=== PATIENT | male | born 1935 | race Caucasian/White ===

== ENCOUNTER → 2016-07-08 | Outpatient (CLI) | payer MEDICARE, BC ==
--- NOTE | 2016-07-08 16:26 | CT ---
EXAM DESCRIPTION: Soft Tissue Neck CLINICAL HISTORY: NECK PAIN COMPARISON: None. TECHNIQUE: Noncontrast transaxial CT images of the neck are obtained with coronal and sagittal reconstructed images. CT scan done according to ALARA (As Low As Reasonably Achievable). FINDINGS: The visualized skull base is unremarkable. Mild intracranial carotid artery calcifications are seen. The bilateral parotid and submandibular glands are normal and symmetric. Soft tissue of the posterior pharynx, base of the tongue, internal are symmetric and unremarkable. The epiglottis and vocal cords are unremarkable. Thyroid demonstrates heterogeneous low-attenuation nodule in the mid to lower pole left lobe measuring 17 mm transverse. Borderline mediastinal, paratracheal lymph nodes are seen measuring up to 1.4 cm short axis. Retropharyngeal space is unremarkable. Severe calcifications of the carotid bulb to internal carotid arteries is seen left greater than right. No pathologically enlarged submandibular or cervical chain lymph nodes. Severe disc space narrowing from C3 through C7 is seen with multilevel facet hypertrophic and degenerative changes contributing to mild spinal canal stenosis and multilevel foraminal encroachment. Visualized orbits and ocular globes are unremarkable. The visualized lung apices are unremarkable. IMPRESSION: No acute findings on noncontrast CT of the neck. 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 Borderline to mildly enlarged lymph nodes in the visualized mediastinum and right paratracheal region are seen. There is a heterogeneous low-attenuation 17 mm nodule of the mid to lower pole left lobe thyroid. Recommend dedicated thyroid ultrasound imaging. Recommendations for f/u of Incidental Thyroid Nodules (ITN) found on CT, MRI, NM and Extrathyroidal US based on the ACR white paper and Weinberg 3-tiered system for managing ITNs: 1. Further evaluation by thyroid US recommended for: Solitary ITN with high risk imaging features (locally invasive nodule or suspicious lymph nodes) 0 Solitary ITN of any size in pediatric patients < 18 years of age 1 Solitary ITN > 1 cm in axial plane in patients between 18 and 35 years of age 2 Solitary ITN > 1.5 cm in axial plane in patients > 35 years of age 3 Heterogeneous enlarged thyroid gland 4 ITN avid on FDG-PET or other nuclear medicine (MIBI and octreotide) scans. FNA biopsy is also recommended for PET avid nodules. 2. No f/u is necessary for ITNs not meeting the above criteria. 3. For multiple thyroid nodules, the above recommendations for solitary ITN are to be applied to the largest nodule. 4. No US or f/u recommended for ITNs without high risk features in patients with limited life expectancy or significant co-morbidities, unless clinically warranted. 5. These recommendations do not apply to patients with increased risk for thyroid cancer or patients with symptomatic thyroid disease. Electronically signed by: Leroy Pina MD 07/08/2016 4:25 PM CDT
--- NOTE | 2016-07-09 07:59 | US ---
EXAM DESCRIPTION: Carotid Duplex CLINICAL HISTORY: BRUIT COMPARISON: None Available. TECHNIQUE: Color Doppler evaluation of the extracranial carotids FINDINGS: Right carotid: There is tortuosity of the right common carotid artery. Mild heterogeneous partly calcified plaque in the right carotid bulb partly extending into the proximal right ICA. Peak systolic velocity common carotid artery = 93 cm/s Peak systolic velocity internal carotid artery = 84 cm/s Peak systolic velocity external carotid artery = 115 cm/s ICA CCA ratio 0.9 Left carotid: There is heterogeneous irregular mostly calcified plaque in the left carotid bulb and proximal left ICA. Peak systolic velocity common carotid artery = 83 cm/s Peak systolic velocity internal carotid artery = 68 cm/s Peak systolic velocity external carotid artery = 192 cm/s ICA CCA ratio 0.8 Antegrade flow is seen in both vertebral arteries Normal flow velocities and waveforms are demonstrated bilaterally. IMPRESSION: There is mild to moderate mostly calcified atherosclerotic disease of the carotid arteries left greater than right. Velocities and ratios suggest less than 39% stenosis of the internal carotid arteries. Elevated velocity in the left external carotid artery is seen suggesting 60-79% stenosis at the origin of this vessel. Electronically signed by: Leroy Pina MD 07/09/2016 7:58 AM CDT
== END | disposition home or self-care (01) ==
LOC: CT 09:12
PROVIDERS: ATTEND Family Medicine
DX: M54.2 Cervicalgia (principal); I65.23 Occlusion and stenosis of bilateral carotid arteries

== ENCOUNTER → 2016-07-16 | Outpatient (CLI) | payer MEDICARE, BC ==
--- NOTE | 2016-07-16 15:02 | US ---
EXAM DESCRIPTION: Thyroid CLINICAL HISTORY: 81 years, Male, NODULE COMPARISON: None. TECHNIQUE: Multiple real-time sonographic images were obtained of the thyroid. FINDINGS: The right lobe demonstrates no mass, cyst, or calcifications. The left lobe demonstrates two well-defined oval hypoechoic nodules. Superior lobe one measures about 10 x 10 x 6 mm. The lower pole and measures about 11 x 9 x 9 mm. The right lobe measures 3.8 cm in length by 1.5 x 1.7 cm. The left lobe measures four cm in length by 1.9 x 1.5 cm. And the isthmus measures four mm in thickness. Surrounding soft tissues are unremarkable. IMPRESSION: Two small nodules in the left lobe nonspecific recommend six-month follow-up Electronically signed by: Oscar Fernandez MD 07/16/2016 3:00 PM CDT
== END | disposition home or self-care (01) ==
LOC: US 08:26
PROVIDERS: ATTEND Family Medicine
DX: E07.9 Disorder of thyroid, unspecified (principal)

== ENCOUNTER → 2016-07-22 | Outpatient (CLI) | payer MEDICARE, BC | LOC: GMAB 14:09 | PROVIDERS: ATTEND Family Medicine | DX: M79.1 Myalgia (principal) ==

== ENCOUNTER → 2016-07-28 | Outpatient (CLI) | payer MEDICARE, BC ==
--- NOTE | 2016-07-28 16:18 | CT ---
EXAM DESCRIPTION: CTA Neck CLINICAL HISTORY: 81 years, Male, OCCLUSION AND STENOSIS OF BILATERAL CAROTID ARTERIES COMPARISON: July 23, 2016. July 16, 2016. TECHNIQUE: Rapid bolus administration of IV contrast was performed with thin-section axial scanning of the neck performed in a dynamic fashion. Reconstructed multiplanar and three dimensional MIP images created on a separate dedicated workstation are reviewed along with the source axial images and stored in the patient's medical record. NASCET criteria was used to calculate stenosis. This exam was performed according to our department minimal dose optimization program which includes automated exposure control, adjustment of mA and/or kV according to patient size and/or use of iterative reconstructed techniques. FINDINGS: Atherosclerotic disease noted within the aortic arch. Left thyroid gland nodule. The right common carotid artery and left common carotid artery are tortuous. No evidence of common carotid artery narrowing on today's study. The right common carotid artery demonstrates roughly 25% narrowing. The right cervical internal carotid artery is tortuous, but unremarkable. There is minimal intimal thickening noted along the anterior margin of the distal left common carotid artery. 31% narrowing of the carotid bulb noted. The remaining cervical left internal carotid artery is tortuous, but unremarkable. There is roughly 50% narrowing of the origin of the left vertebral artery. The origin is also tortuous. The remaining left dominant vertebral artery is unremarkable throughout cervical extent. The right vertebral artery demonstrates minimal atherosclerotic plaque at its origin, and is otherwise unremarkable. No mass or lymphadenopathy noted. Multilevel degenerative change of the cervical spine noted. Minimal paraseptal emphysema noted. IMPRESSION: Today's exam reveals roughly 25% narrowing of the right distal common carotid artery and carotid bulb and 31% narrowing of the left distal common carotid artery and carotid bulb when compared to the more distal cervical internal carotid arteries. Roughly 50% narrowing the origin of the left dominant vertebral artery. Cervical spondylosis noted and minimal paraseptal emphysema. Electronically signed by: Neil Greenfield MD 07/28/2016 4:17 PM CDT
== END | disposition home or self-care (01) ==
LOC: CT 08:02
PROVIDERS: ATTEND Family Medicine
DX: I65.23 Occlusion and stenosis of bilateral carotid arteries (principal)

== ENCOUNTER → 2016-09-02 | Outpatient (CLI) | payer MEDICARE, BC | END | disposition home or self-care (01) | LOC: GMAB 16:54 | PROVIDERS: ATTEND Family Medicine | DX: M35.3 Polymyalgia rheumatica (principal) ==

== ENCOUNTER → 2016-11-15 | Outpatient (CLI) | payer MEDICARE, BC | END | disposition home or self-care (01) | LOC: GMAB 16:38 | PROVIDERS: ATTEND Family Medicine | DX: E53.8 Deficiency of other specified B group vitamins (principal); D50.9 Iron deficiency anemia, unspecified; R07.82 Intercostal pain ==

== ENCOUNTER → 2016-12-28 | Outpatient (CLI) | payer MEDICARE, BC | LOC: GMAB 11:03 | PROVIDERS: ATTEND Family Medicine | DX: M35.3 Polymyalgia rheumatica (principal); E53.8 Deficiency of other specified B group vitamins; D50.9 Iron deficiency anemia, unspecified ==

== ENCOUNTER → 2017-02-28 | Outpatient (CLI) | payer MEDICARE, BC | END | disposition home or self-care (01) | LOC: GMAB 11:43 | PROVIDERS: ATTEND Family Medicine | DX: M35.3 Polymyalgia rheumatica (principal) ==

== ENCOUNTER → 2017-06-15 | Outpatient (CLI) | payer MEDICARE, BC | LOC: GMAB 10:48 | PROVIDERS: ATTEND Family Medicine | DX: M06.9 Rheumatoid arthritis, unspecified (principal); R53.82 Chronic fatigue, unspecified; E53.8 Deficiency of other specified B group vitamins; D50.9 Iron deficiency anemia, unspecified ==

== ENCOUNTER → 2017-07-18 | Outpatient (CLI) | payer BC | END | disposition home or self-care (01) | LOC: GMAB 16:31 | PROVIDERS: ATTEND Family Medicine | DX: M79.674 Pain in right toe(s) (principal) ==

== ENCOUNTER 2017-07-30 08:13 | Emergency (ER) | payer BC, MEDICARE ==
--- NOTE | 2017-07-30 08:32 | ED.PDOC ---
History of Present Illness - General Chief Complaint: Lower Extremity Injury Stated Complaint: left foot pain Time Seen by Provider: 07/30/17 08:28 Source: patient Exam Limitations: no limitations - History of Present Illness Initial Comments: Zheng Cabrera 82 y/o male brought by with dull constant left foot pain since yesterday .No history of injury ,fever ,but with pain on weight bearing to left foot.Has polymyalgia rheumatica. Occurred: yesterday Pain - Lower Extremity: moderate: Left Foot Method of Injury: unknown, other - denies injury Improving Factors: nothing Worsening Factors: movement Associated Symptoms: see hpi Allergies/Adverse Reactions: Allergies Erythromycin Allergy (Verified 09/30/15 22:29) Penicillins Allergy (Verified 09/30/15 22:26) myacins Allergy (Uncoded 09/30/15 22:29) Home Medications: Ambulatory Orders Ferrous Gluconate 324 mg PO DAILY 07/30/17 Folic Acid 1 mg PO DAILY 07/30/17 Gabapentin 600 mg PO TID 07/30/17 Methotrexate Sodium [Methotrexate] 8 each PO WKLY 07/30/17 Prednisone 8 mg PO DAILY 07/30/17 Tramadol HCl 50 mg PO Q6HRS PRN #30 tab 07/30/17 Review of Systems - Review of Systems Constitutional: States: no symptoms reported EENTM: States: no symptoms reported Respiratory: States: no symptoms reported Cardiology: States: no symptoms reported Musculoskeletal: States: see HPI All other Systems: Reviewed and Negative, No Change from Baseline Past Medical History (General) - Patient Medical History Hx MRSA: No Hx Other PMH: Yes - polymyalgia rheumatica Surgical History: appendectomy, other - toe - Vaccination History Hx Influenza Vaccination: Yes Hx Pneumococcal Vaccination: No - Social History Hx Tobacco Use: No Hx Alcohol Use: No Hx Physical Abuse: No Hx Emotional Abuse: No - Activities of Daily Living Patient Lives Alone: No Grooming Ability: Independent Eating (Feeding) Ability: Independent Toileting Ability: Independent Family Medical History - Family History Father Family History: Unknown Hx Family Stroke: Yes - dad,brother,sister Hx Family;Other: MOM-Alzheimers disease Physical Exam - Physical Exam General Appearance: Alert, Comfortable, No apparent distress Eyes, Ears, Nose, Throat: normal ENT inspection Neck: non-tender, full range of motion, supple Cardiovascular/Respiratory: regular rate, rhythm, no M/R/G, normal peripheral pulses Gastrointestinal/Abdominal: non-tender, no organomegaly Back: normal inspection, no CVA tenderness, no vertebral tenderness Thigh/Hip: normal inspection, no evidence of injury Leg: normal inspection, no evidence of injury Knee: normal inspection, no evidence of injury Ankle: normal inspection, no evidence of injury Foot: normal inspection - 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, no evidence of injury, bone tenderness - left foot, limited ROM - left foot, other - slight erythema, dorsalis pedis pulses intact both feet Neuro/Tendon: normal sensation, normal motor functions, normal tendon functions , responds to pain, no evidence tendon injury Mental Status: alert, oriented x 3 Skin: normal color, warm/dry Progress - Progress Progress: 07/30/17 09:22 Vital Signs - 8 hr 07/30/17 08:15 Pulse Rate [ 63 left brachial] Respiratory 20 Rate Blood Pressure 136/70 [left brachial] O2 Sat by Pulse 98 Oximetry - Results/Orders Results/Orders: Laboratory Results - last 24 hr 07/30/17 07/30/17 08:54 08:54 WBC 7.2 RBC 3.30 L Hgb 11.7 L Hct 33.9 L MCV 102.8 H MCH 35.4 H MCHC 34.7 RDW 15.7 H Plt Count 125 L MPV 9.6 Absolute Neuts (auto) 5.50 Absolute Lymphs (auto) 0.50 L Absolute Monos (auto) 1.10 H Absolute Eos (auto) 0.00 Absolute Basos (auto) 0.10 Neutrophils % 76.3 Lymphocytes % 6.8 L Monocytes % 15.8 H Eosinophils % 0.2 L Basophils % 0.9 Sodium 140 Potassium 3.9 Chloride 103 Carbon Dioxide 30 Anion Gap 10.9 L BUN 14 Creatinine 0.54 L BUN/Creatinine Ratio 25.9 H Random Glucose 134 H Serum Osmolality 281.8 Uric Acid 5.3 Calcium 9.3 - EKG/XRAY/CT XRAY: foot left-degenerative changes no fracture or dislocation as per radiologist Departure - Departure Clinical Impression: Pain of left foot Time of Disposition: 10:55 Disposition: Discharge to Home or Self Care Condition: Fair Departure Forms: ED Discharge - Pt. Copy, Patient Portal Self Enrollment Instructions: DI for Foot Pain, DI for Metatarsalgia Activity: ambulate only with walker Referrals: Lawrence Meyer MD [Primary Care Provider] - 1-2 Weeks Prescriptions: Tramadol HCl 50 mg PO Q6HRS PRN #30 tab PRN Reason: Pain Home Medications: Ambulatory Orders Ferrous Gluconate 324 mg PO DAILY 07/30/17 Folic Acid 1 mg PO DAILY 07/30/17 Gabapentin 600 mg PO TID 07/30/17 Methotrexate Sodium [Methotrexate] 8 each PO WKLY 07/30/17 Prednisone 8 mg PO DAILY 07/30/17 Tramadol HCl 50 mg PO Q6HRS PRN #30 tab 07/30/17 Additional Instructions: May use Icy Hot rub or Aspercreme apply to affected foot 3 x a day until better; follow up with primary Md 01 August 2017
[2017-07-30 08:37] VITALS: O2SAT 98
[2017-07-30] MEDS ORDERED: DEXAMETHASONE INJ 4 MG/ML VIAL IM ONE (08:37)
[2017-07-30] MEDS ORDERED: KETOROLAC TROMETHAMINE INJ 30 MG/ML VIAL IM ONE (08:37)
--- NOTE | 2017-07-30 08:54 | RAD ---
LEFT FOOT HISTORY: pain COMPARISON: None FINDINGS: Three views of foot demonstrate anatomic bony alignment. No fracture nor dislocation nor inflammatory bony erosion is identified. Pronounced degenerative changes along the first TMT joint. Other joint spaces are maintained. No soft tissue abnormality is seen. Small plantar enthesophyte in posterior calcaneus. Minimal effusion anterior to the ankle joint IMPRESSION: No bony injury identified in left foot. Pronounced degenerative change along the first TMT joint Minimal anterior ankle joint effusion Electronically signed by: Adrian Daly MD 07/30/2017 8:52 AM CDT
[2017-07-30 11:25] VITALS: BP 131/67
== END 2017-07-30 11:25 | disposition home or self-care (01) ==
LOC: ER 08:13
DX: M79.672 Pain in left foot (principal); M35.3 Polymyalgia rheumatica

== ENCOUNTER 2017-08-17 17:30 | Inpatient (IN) | payer MEDICARE ==
--- NOTE | 2017-08-17 18:24 | ED.PDOC ---
History of Present Illness - General Chief Complaint: Fever Stated Complaint: fever, weakness Time Seen by Provider: 08/17/17 18:11 Source: patient, family - Exam Limitations: no limitations - History of Present Illness Initial Comments: Zheng Cabrera 82 y/o male stated that he had sudden onset of chills,shaky, and fever about 3 hours ago initially seen [facility] and had cstrep test done was positive-faintly but was sent to ER for further evaluation.Denies cough N/V/D abdominal or chest pain symptoms no neck pains,no dysuria. Timing/Duration: 1-3 hours Severity: moderate Improving Factors: nothing Worsening Factors: nothing Associated Symptoms: other - see hpi Allergies/Adverse Reactions: Allergies Codeine Allergy (Verified 08/17/17 17:56) Erythromycin Allergy (Verified 09/30/15 22:29) Penicillins Allergy (Verified 09/30/15 22:26) Tetracaine Allergy (Verified 08/17/17 17:56) myacins Allergy (Uncoded 09/30/15 22:29) Home Medications: Ambulatory Orders Ferrous Gluconate 324 mg PO DAILY 07/30/17 Folic Acid 1 mg PO DAILY 07/30/17 Gabapentin 600 mg PO TID 07/30/17 Methotrexate Sodium [Methotrexate] 8 each PO WKLY 07/30/17 Prednisone 8 mg PO DAILY 07/30/17 Tramadol HCl 50 mg PO Q6HRS PRN #30 tab 07/30/17 Review of Systems - Review of Systems Constitutional: States: fever EENTM: States: no symptoms reported Respiratory: States: no symptoms reported Cardiology: States: no symptoms reported Gastrointestinal/Abdominal: States: no symptoms reported Genitourinary: States: no symptoms reported Musculoskeletal: States: no symptoms reported Skin: States: no symptoms reported Neurological: States: no symptoms reported All other Systems: Reviewed and Negative, No Change from Baseline Past Medical History (General) - Patient Medical History Hx Seizures: No Hx Stroke: No Hx Dementia: No Hx Asthma: No Hx Cardiac Disorders: No Hx Congestive Heart Failure: No Hx Pacemaker: No Hx Hypertension: No Hx Thyroid Disease: No Hx Diabetes: No Hx Gastroesophageal Reflux: Yes Hx Renal Disease: No Hx MRSA: No Hx Other PMH: Yes - polymyalgia rheumatica Surgical History: appendectomy, other - toe - Vaccination History Hx Influenza Vaccination: No Hx Pneumococcal Vaccination: No - Social History Hx Tobacco Use: No Hx Alcohol Use: No Hx Physical Abuse: No Hx Emotional Abuse: No Family Medical History - Family History Father Family History: Unknown Hx Family Stroke: Yes - dad,brother,sister Hx Family;Other: MOM-Alzheimers disease Physical Exam - Physical Exam General Appearance: Alert, Comfortable, No apparent distress Eye Exam: bilateral normal Ears, Nose, Throat: hearing grossly normal, normal ENT inspection, normal pharynx Neck: non-tender, full range of motion, supple Respiratory: chest non-tender, lungs clear, normal breath sounds, no respiratory distress Cardiovascular/Chest: normal peripheral pulses, regular rate, rhythm, no murmur Peripheral Pulses: radial,right: 2+, radial,left: 2+ Gastrointestinal/Abdominal: normal bowel sounds, non tender, soft, no organomegaly Back Exam: no CVA tenderness, no vertebral tenderness Extremity: no pedal edema, no calf tenderness Neurologic: alert, oriented x 3 Skin Exam: normal color, warm/dry Progress - Progress Progress: 08/17/17 19:46 08/17/17 18:08 STREP A SCREEN CULTURE Stat 08/17/17 18:28 IV Care:Saline Lock per Protoc QSHIFT 08/17/17 18:37 BLOOD CULTURE Stat Laboratory Results - last 24 hr 08/17/17 08/17/17 08/17/17 18:08 18:37 18:37 WBC 10.1 RBC 3.40 L Hgb 12.1 L Hct 34.6 L MCV 102.0 H MCH 35.5 H MCHC 34.9 RDW 15.7 H Plt Count 141 MPV 9.2 Absolute Neuts (auto) 8.90 H Absolute Lymphs (auto) 0.30 L Absolute Monos (auto) 0.80 Absolute Eos (auto) 0.00 Absolute Basos (auto) 0.10 Neutrophils % 87.9 H Lymphocytes % 2.7 L Monocytes % 8.4 Eosinophils % 0.2 L Basophils % 0.8 Sodium 135 Potassium 4.1 Chloride 100 L Carbon Dioxide 26 Anion Gap 13.1 BUN 15 Creatinine 0.62 BUN/Creatinine Ratio 24.2 H Random Glucose 102 Serum Osmolality 271.1 L Lactic Acid Calcium 9.1 Total Bilirubin 1.4 H AST 30 ALT 18 Alkaline Phosphatase 44 Serum Total Protein 6.4 Albumin 3.9 Globulin 2.5 Albumin/Globulin Ratio 1.6 Urine Color Urine Appearance Urine pH Ur Specific [place] Urine Protein Urine Glucose (UA) Urine Ketones Urine Blood Urine Nitrite Urine Bilirubin Urine Urobilinogen Ur Leukocyte Esterase Urine RBC Urine WBC Ur Epithelial Cells Urine Bacteria Group A Strep Rapid Negative 08/17/17 08/17/17 18:37 19:00 WBC RBC Hgb Hct MCV MCH MCHC RDW Plt Count MPV Absolute Neuts (auto) Absolute Lymphs (auto) Absolute Monos (auto) Absolute Eos (auto) Absolute Basos (auto) Neutrophils % Lymphocytes % Monocytes % Eosinophils % Basophils % Sodium Potassium Chloride Carbon Dioxide Anion Gap BUN Creatinine BUN/Creatinine Ratio Random Glucose Serum Osmolality Lactic Acid 1.5 Calcium Total Bilirubin AST ALT Alkaline Phosphatase Serum Total Protein Albumin Globulin Albumin/Globulin Ratio Urine Color Yellow Urine Appearance Clear Urine pH 7.5 Ur Specific [place] 1.020 Urine Protein Negative Urine Glucose (UA) Negative Urine Ketones Negative Urine Blood Negative Urine Nitrite Negative Urine Bilirubin Negative Urine Urobilinogen 0.2 Ur Leukocyte Esterase Negative Urine RBC 0-1 Urine WBC 0-1 Ur Epithelial Cells 0 Urine Bacteria 0 Group A Strep Rapid - Results/Orders Results/Orders: Vital Signs - 8 hr 08/17/17 08/17/17 17:40 19:00 Temperature 103.3 F H 104.2 F H Pulse Rate [ 82 81 pulse ox] Respiratory 20 18 Rate Blood Pressure 146/78 116/82 [Left Arm] O2 Sat by Pulse 93 L 92 L Oximetry - EKG/XRAY/CT XRAY: chest - right basilar patchy opacities/atelectasis CT Ordered: Yes - abd/p-no acute findings/radiologist Departure - Departure Clinical Impression: Fever and chills, H/O polymyalgia rheumatica, Long-term use of immunosuppressant medication Pneumonia Qualifiers: Pneumonia type: due to unspecified organism Laterality: right Lung location: lower lobe of lung Qualified Code(s): J18.1 - Lobar pneumonia, unspecified organism Time of Disposition: 20:13 Disposition: Admit Patient Condition: Fair Departure Forms: Patient Portal Self Enrollment Referrals: Lawrence Meyer MD [Primary Care Provider] - 1-2 Weeks Home Medications: Ambulatory Orders Ferrous Gluconate 324 mg PO DAILY 07/30/17 Folic Acid 1 mg PO DAILY 07/30/17 Gabapentin 600 mg PO TID 07/30/17 Methotrexate Sodium [Methotrexate] 8 each PO WKLY 07/30/17 Prednisone 8 mg PO DAILY 07/30/17 Tramadol HCl 50 mg PO Q6HRS PRN #30 tab 07/30/17 Decision To Admit - Decistion To Admit Decision to Admit Reason: Admit from ER - D/W Zachary Austin-ANP/Hospitalist Decision to Admit Date: 08/17/17 Decision to Admit Time: 20:11
[2017-08-17] MEDS ORDERED: ACETAMINOPHEN 325 MG TAB PO ONE (18:26)
[2017-08-17] MEDS ORDERED: SODIUM CHLORIDE 0.9% 500ML 500 ML IVS ONE (18:28)
--- NOTE | 2017-08-17 19:26 | RAD ---
EXAM DESCRIPTION: Chest,2 Views CLINICAL HISTORY:82 years Male, fever Comparison: None FINDINGS: Right basilar patchy opacities may represent atelectasis or pneumonia. Blunting right costophrenic angle may be due from pleural parenchymal thickening versus small pleural effusion. Cardiac and mediastinal silhouette is unremarkable. Atherosclerotic vascular calcifications. No acute osseous abnormality. Soft tissues are unremarkable. Electronically signed by: Stan Oconnell MD 08/17/2017 7:25 PM CDT
--- NOTE | 2017-08-17 19:44 | CT ---
PROCEDURE: Abdoment/Pelvis w/o Contrast HISTORY: fever Indication: Same as above Comparison: None Technique: CT of the abdomen and pelvis was done without intravenous contrast. Images were obtained from the lung base to the level of the pubic symphysis in axial plane, followed by orthogonal sagittal and coronal reconstruction. Oral contrast was not given for the study. This exam was performed according to our departmental dose-optimization program, which includes automated exposure control, adjustment of the mA and/or KV according to the patient's size and/or use of iterative reconstruction technique. FINDINGS: Images through the lung bases do not show any focal infiltrates or pleural effusions. There is presence of a small hiatal hernia The liver, gallbladder, pancreas, spleen and the bilateral adrenal glands appear unremarkable, given the limitation of lack of intravenous contrast. The bilateral kidneys do not show any evidence of hydronephrosis or nephrolithiasis. The bilateral ureters and the bilateral periureteral soft tissues and fat planes are unremarkable. The urinary bladder is unremarkable, without any evidence of wall thickening, calculi or filling defects. The prostate is moderately enlarged The small bowel appears unremarkable, without any evidence of small bowel obstruction or bowel wall thickening. There is no CT evidence of pericecal inflammatory change or ileocecal mesenteric adenitis. The appendix is not visualized. The ileocecal junction appears unremarkable. There is no CT evidence of acute colonic diverticulitis or colitis or large bowel obstruction. There is large bowel diverticulosis There is no pathological lymphadenopathy in the retroperitoneum or in the pelvic region. There is no evidence of free fluid or free air in the abdomen or the pelvic region. There is no clinically significant abdominal aortic aneurysm. Extensive atherosclerotic vascular wall calcifications are seen in the abdomen and the pelvis including the origin of the bilateral main renal arteries from the abdominal aorta There is a tiny fat-containing periumbilical ventral hernia defect The visualized lumbar spine shows multilevel degenerative change. The paravertebral soft tissues are unremarkable. The remainder of the pelvic structures are unremarkable. IMPRESSION: There are no acute findings in the abdomen of the pelvis. Enlarged prostate, large bowel diverticulosis, without acute diverticulitis and a small hiatal hernia is noted. There is extensive atherosclerotic vascular wall calcifications including the origin of the bilateral main renal arteries from the abdominal aorta Electronically signed by: Ezekiel Maurer MD 08/17/2017 7:42 PM CDT Workstation: [id number]
[2017-08-17] MEDS ORDERED: levoFLOXacin 500MG IV 500 MG in PREMIX BAG 1 BAG IVPB ONE (19:48)
[2017-08-17] MEDS ORDERED: levoFLOXacin 500MG IV 100 ML IVPB ONE (20:17)
--- NOTE | 2017-08-17 20:52 | HP ---
SUPERVISING PHYSICIAN: Jose Roberto Bello M.D. CHIEF COMPLAINT: Fever. HISTORY OF PRESENT ILLNESS: This is an 82 year-old male patient who basically was in his normal state of health until around 3:00 when he developed fever and chills. He was initially seen at Dr. Meyer's office and a Strep test was done which was reportedly faintly positive, but due to the fever he was sent over to the E. R. for further workup. He absolutely has no other symptoms. No cough, nausea or vomiting. No diarrhea. No burning with urination. As stated before , he was in his usual state of health until he developed the fever and chills around 3:00 in the afternoon. His daughter states in fact he was pulling weeds and doing yard work on 5 acres of land yesterday. In the Emergency Room, he was seen and his workup included labs as well as chest x-ray and CT scan of the abdomen. His chest x-ray was concerning for a possible right lower lobe infiltrate. However, he had the CT of the abdomen and pelvis done which got some lower slices of the lungs which did not show any infiltrate. It did in fact show small hiatal hernia, enlarged prostate, diverticulosis without diverticulitis and atherosclerosis of the abdominal aorta and bilateral renal arteries, however there was no concern for infection on the CT of the abdomen. His labs were done and his chemistry was pretty much normal except for his bilirubin. It was 1.4. Other liver function tests were normal. Amylase and lipase were not checked, although the gallbladder was unremarkable on the CT scan. In the Emergency Room, his fever was as high as 104.2. Blood pressure was initially elevated, now about 105/56. PAST MEDICAL HISTORY: 1. Polymyalgia rheumatica. 2. Rheumatoid arthritis. 3. Ehrlichiosis from a tick bite in the past. 4. Benign prostatic hypertrophy. 5. Gastroesophageal reflux disease. PAST SURGICAL HISTORY: 1. Colonoscopy. 2. Appendectomy in 1959. 3. Hammertoe surgery. CURRENT MEDICATIONS: 1. Ferrous gluconate 324 mg p.o. daily. 2. Folic acid 1 mg p.o. at 1800. 3. Gabapentin 600 mg p.o. t.i.d. 4. Methotrexate 2.5 mg tablets times 8 tablets p.o. weekly on Tuesdays. 5. Prednisone 4 mg p.o. at 1300 daily. ALLERGIES: CODEINE, MYCINS, PENICILLIN,TETRACYCLINE AND FLOMAX. FAMILY HISTORY: Reviewed and noncontributory. SOCIAL HISTORY: No drinking. No smoking. No illicit drugs. He is . He is very active. REVIEW OF SYSTEMS: Twelve system review of systems are reviewed and were negative except for the fever and chills. PHYSICAL EXAMINATION: VITAL SIGNS: Blood pressure 105/56, heart rate 66, respiratory rate 20, temperature is currently 99.8 but was as high as 104.2 in the Emergency Room and his oxygen is 96%. GENERAL: Mr. Cabrera is an 82 year-old male patient in no distress at this time. HEENT: Head is normocephalic and atraumatic. Eyes: Pupils are equal and reactive. Nose: With no drainage. Throat: With moist mucosa. NECK: Supple. Midline trachea. There is no visible jugular venous distention. CHEST: Symmetrical with equal rise and fall of the chest with inspiration and expiration. Lung sounds are clear to auscultation bilaterally. CARDIOVASCULAR: The patient has a regular rate and rhythm. Normal S1 and S2. There are no murmurs. ABDOMEN: Soft. Positive bowel sounds. No tenderness to palpation in any of the four quadrants. GENITOURINARY: Exam is deferred. EXTREMITIES: Lower extremities with no edema. Pulses are 2+. Capillary refill is less than 2 seconds. NEUROLOGIC: The patient is alert and oriented. Moves all extremities. Extraocular movements are intact. There are no focal deficits. Cranial nerves II-XII are grossly intact. LABORATORY: Labs and films are as discussed in the History of Present Illness. ASSESSMENT: 1. Fever of unknown origin in a patient with immunocompromise state. 2. Possible right lower lobe pneumonia, however the lung slices on the CT abdomen and pelvis do not support this. 3. History of rheumatoid arthritis and polymyalgia rheumatica on chronic Methotrexate and Prednisone. PLAN: At this point, there is no significant cause for his fever. The right lower lobe infiltrate that was seen on chest x-ray was not supported on the lung slices from the CT scan. However, he did run a significant fever of 104. He is on immunosuppressing medication such as Methotrexate as well as Prednisone , therefore we are treating this as a fever of unknown origin. I am placing him on broad spectrum antibiotics at this time. His Strep test was negative here. His urine is negative here. His CBC does not show an elevated white count, but he does have a left shift of 88%. His chemistry is pretty much unremarkable except for the fact he does have a slightly elevated bilirubin at 1.4. Lactic acid was normal. I do not feel like he is in septic shock at this time. Will have to monitor the cultures and adjust accordingly. The family does state in the early 1999' that he had a tick bite and he developed Ehrlichiosis from that, and he was on Doxycycline for quite some time due to that. I am going to get a peripheral blood smear and see what that looks like, and maybe that will give us a better idea what is going on. Will utilize DVT and GI prophylaxis as well. I am going to go ahead and give him a bolus of lactated ringers and start him on some IV fluids along with antibiotics. #[id number] [facility]
[2017-08-17] MEDS ORDERED: ACETAMINOPHEN 325 MG TAB PO PRN (22:19)
[2017-08-17] MEDS ORDERED: VANCOMYCIN PER PHARMACY INJ SCH (22:30)
[2017-08-17] MEDS ORDERED: CEFEPIME 2 GM in SODIUM CHL 0.9% 50ML MIN-BAG+ 50 ML IVPB SCH (22:30)
[2017-08-17] MEDS ORDERED: NON-FORMULARY MEDICATION 1 EA MIS (Gabapentin [Gabapentin] 600 MG) PO SCH (22:30)
[2017-08-17] MEDS ORDERED: IV SET AND CAP CHANGE INJ INJ SCH (22:30)
[2017-08-17] MEDS ORDERED: LACTATED RINGERS 1,000 ML IVS ONE (22:36)
[2017-08-17] MEDS ORDERED: GABAPENTIN 300 MG CAP ONE (23:01)
[2017-08-17] MEDS ORDERED: SODIUM CHL 0.9% 50ML MIN-BAG+ 50 ML IVPB ONE (23:01)
[2017-08-17] MEDS ORDERED: metroNIDAZOLE IV PREMIX 500MG 100 ML IVPB ONE (23:01)
[2017-08-17] MEDS ORDERED: CEFEPIME 2 GM VIAL IVPB ONE (23:01)
[2017-08-17] MEDS: ENOXAPARIN SODIUM 40 MG/0.4 ML SYG SUBCU SCH (23:04)
[2017-08-17] MEDS: SODIUM CHLORIDE 0.9% (FLUSH) 10 ML SYG IV PRN (23:04)
[2017-08-18] MEDS: SODIUM CHLORIDE 0.9% 1000ML 1,000 ML IVS PRN ×2 (00:03→17:22)
[2017-08-18] MEDS: metroNIDAZOLE IV PREMIX 500MG 500 MG in PREMIX BAG 1 BAG IVPB SCH ×4 (00:35→23:14)
[2017-08-18] MEDS ORDERED: metroNIDAZOLE IV PREMIX 500MG 100 ML IVPB ONE ×3 (06:06→20:18)
--- NOTE | 2017-08-18 07:06 | RAD ---
EXAM DESCRIPTION: Chest,1 View CLINICAL HISTORY: RLL pneumonia COMPARISON: August 17, 2017 FINDINGS: The cardiomediastinal silhouette is unremarkable. There is some ill-defined alveolar opacity in the right lung base of the possible tiny right-sided pleural effusion. The left lung and left pleural space are clear. The bronchovascular markings are within normal limits. There is no pneumothorax or acute fracture. IMPRESSION: Right basilar pneumonia with a possible tiny right-sided effusion. Electronically signed by: Jack Wood MD 08/18/2017 7:04 AM CDT
[2017-08-18] MEDS ORDERED: SODIUM CHLORIDE 0.9% 250ML 250 ML ONE ×2 (08:47→20:17)
[2017-08-18] MEDS ORDERED: SODIUM CHL 0.9% 50ML MIN-BAG+ 50 ML IVPB ONE ×2 (08:48→20:18)
[2017-08-18] MEDS ORDERED: CEFEPIME 2 GM VIAL IVPB ONE ×2 (08:49→20:18)
[2017-08-18] MEDS ORDERED: VANCOMYCIN HCL INJ 1,000 MG VIAL IVPB ONE ×2 (08:49→20:19)
[2017-08-18] MEDS: GABAPENTIN 300 MG CAP PO SCH ×3 (09:04→21:18)
[2017-08-18] MEDS: FERROUS GLUCONATE 325 MG TAB PO SCH (09:04)
[2017-08-18] MEDS: VANCOMYCIN HCL INJ 1,000 MG in SODIUM CHLORIDE 0.9% 250ML 250 ML IVPB SCH ×2 (09:28→21:18)
--- NOTE | 2017-08-18 11:04 | PN ---
SUPERVISING PHYSICIAN: Jose Roberto Bello MD DATE: 08/18/17 SUBJECTIVE: The patient is lying in his hospital bed. He feels much better than yesterday. He denies any nausea or vomiting, chest pain, shortness of breath. He does still have a slight cough, but his weakness is improved as well as he is getting up and going to the bathroom on his own. OBJECTIVE: VITAL SIGNS: Temperature 99.8. It has been as high as 101.2. Heart rate 72. Blood pressure 128/60. Respiratory rate 18. O2 saturation 92% on room air. RESPIRATORY: Diminished at the bases, otherwise clear to auscultation. CARDIAC: Regular rate and rhythm. GASTROINTESTINAL: Abdomen is soft, nondistended, nontender. Bowel sounds are positive. EXTREMITIES: No cyanosis, clubbing or edema. NEUROLOGIC: Awake, alert and oriented times three. LABORATORY: WBCs 7.4, hemoglobin 11.5, hematocrit 33.3, platelet count slightly low at 119, neutrophils 85.8%. Electrolytes are basically within normal limits. Total bilirubin is improved to 1.1. Preliminary blood cultures are negative to date. Group A strep culture is pending. Chest x-ray shows right basilar pneumonia with a possible tiny right sided effusion. All other labs and films have been reviewed via the EMR. ASSESSMENT: 1. Sepsis due to right lower lobe pneumonia with an admission temperature of 104.2 and bandemia of 16% 2. Fever of unknown origin. The patient is on methotrexate with immunocompromised state. 3. History of rheumatoid arthritis and polymyalgia rheumatica on chronic methotrexate and prednisone. PLAN: We will continue present supportive care including broad spectrum antibiotics. We will monitor his cultures as they become available. He is improving clinically and we will repeat x-ray and labs in the morning. We will continue to monitor the patient closely and follow as needed. Dr. Bello is the collaborating physician and available for consultation. #[id number] [facility]
[2017-08-18] MEDS: CEFEPIME 2 GM in SODIUM CHL 0.9% 50ML MIN-BAG+ 50 ML IVPB SCH (12:32)
[2017-08-18] MEDS: predniSONE 1 MG TAB PO SCH (13:14)
[2017-08-18] MEDS: FOLIC ACID 1 MG TAB PO SCH (17:48)
[2017-08-18] MEDS: ENOXAPARIN SODIUM 40 MG/0.4 ML SYG SUBCU SCH (23:13)
[2017-08-19] MEDS: CEFEPIME 2 GM in SODIUM CHL 0.9% 50ML MIN-BAG+ 50 ML IVPB SCH ×2 (00:41→12:53)
[2017-08-19] MEDS: SODIUM CHLORIDE 0.9% 1000ML 1,000 ML IVS PRN (04:32)
[2017-08-19] MEDS ORDERED: metroNIDAZOLE IV PREMIX 500MG 100 ML IVPB ONE ×2 (04:54→15:12)
[2017-08-19] MEDS: metroNIDAZOLE IV PREMIX 500MG 500 MG in PREMIX BAG 1 BAG IVPB SCH ×2 (06:12→15:23)
--- NOTE | 2017-08-19 06:42 | RAD ---
Procedure: XR CHEST 2 VIEWS Exam Date: 08/19/2017 Ordering Provider: NATE AUGUSTIN Clinical Indication: pna, cough Comparison: 08/18/2017 Findings: Cardiomediastinal silhouette: Unremarkable Pulmonary vasculature : Unremarkable Aortic calcification. Focal lung consolidation: No focal lung consolidation. Bibasilar subsegmental atelectasis/scarring. Pleural effusion: None Pneumothorax: None Bones and soft tissues: Unremarkable Impression: 1. No acute abnormalities in the chest. Electronically signed by: Jean Claude العراقي MD 08/19/2017 6:40 AM CDT
[2017-08-19] MEDS ORDERED: SODIUM CHLORIDE 0.9% 250ML 250 ML ONE (09:47)
[2017-08-19] MEDS ORDERED: VANCOMYCIN HCL INJ 1,000 MG VIAL IVPB ONE (09:48)
[2017-08-19] MEDS: VANCOMYCIN HCL INJ 1,000 MG in SODIUM CHLORIDE 0.9% 250ML 250 ML IVPB SCH (09:57)
[2017-08-19] MEDS: GABAPENTIN 300 MG CAP PO SCH ×3 (09:58→20:44)
[2017-08-19] MEDS: FERROUS GLUCONATE 325 MG TAB PO SCH (09:58)
[2017-08-19] MEDS ORDERED: CEFEPIME 2 GM VIAL IVPB ONE ×2 (12:31→19:50)
[2017-08-19] MEDS: SODIUM CHLORIDE 0.9% (FLUSH) 10 ML SYG IV SCH ×2 (12:31→20:45)
[2017-08-19] MEDS ORDERED: SODIUM CHL 0.9% 50ML MIN-BAG+ 50 ML IVPB ONE ×2 (12:31→19:49)
[2017-08-19] MEDS: predniSONE 1 MG TAB PO SCH (13:24)
[2017-08-19] MEDS: SODIUM CHLORIDE 0.9% (FLUSH) 10 ML SYG IV PRN (13:24)
[2017-08-19] MEDS ORDERED: ONDANSETRON INJ 4 MG/2 ML VIAL IV PRN (15:17)
[2017-08-19] MEDS ORDERED: traMADol HCL 50 MG TAB PO PRN (15:19)
--- NOTE | 2017-08-19 16:33 | PN ---
DATE: 08/19/17 SUPERVISING PHYSICIAN: Jose Roberto Bello M.D. SUBJECTIVE: The patient is sitting up in his hospital bed. He is eating his lunch. Has no complaints of nausea, vomiting, diarrhea, constipation, chest pain or shortness of breath. He did have some nausea overnight with a headache but it is now gone. OBJECTIVE: VITAL SIGNS: He is afebrile, heart rate 51, blood pressure 110/74, respiratory rate 18, O2 sat 92% on room air. RESPIRATORY: Essentially clear to auscultation bilaterally. Somewhat diminished at the bases. CARDIAC: Bradycardic rate, regular rhythm. NEUROLOGIC: He is awake, alert and oriented times three. LABORATORY: WBCs are 4.9 with hemoglobin 11.6, hematocrit 33.7. Neutrophils have normalized to 68.6%. Electrolytes are basically within normal limits, including his magnesium which is 1.9. Preliminary blood cultures show no growth after 24 hours. Chest x-ray shows no acute cardiopulmonary processes. All other labs and films have been reviewed via the EMR. ASSESSMENT: 1. Sepsis due to right lower lobe pneumonia with an admission temperature of 104.2 and bandemia of 16%. 2. Fever of unknown origin. The patient is on methotrexate with an immunocompromised state. 3. History of rheumatoid arthritis and polymyalgia rheumatica on chronic methotrexate and prednisone. PLAN: We will continue present supportive care. Because his preliminary blood cultures are negative, he has been afebrile for about 48 hours. I will discontinue the vancomycin and Flagyl. We will continue with the Cefepime based on his chest x-ray from yesterday and the date of admission and treat for pneumonia. He is encouraged to get up and ambulate. I have saline-locked his IV fluids. If he continues to progress clinically, we will discharge him tomorrow or the next day. Meanwhile we will continue to follow him closely and followup as needed. Dr. Bello is the collaborating physician available for consultation. #[id number] [facility]
[2017-08-19] MEDS: FOLIC ACID 1 MG TAB PO SCH (18:19)
[2017-08-19] MEDS: ENOXAPARIN SODIUM 40 MG/0.4 ML SYG SUBCU SCH (22:02)
[2017-08-20] MEDS: CEFEPIME 2 GM in SODIUM CHL 0.9% 50ML MIN-BAG+ 50 ML IVPB SCH (00:08)
[2017-08-20] MEDS: SODIUM CHLORIDE 0.9% (FLUSH) 10 ML SYG IV PRN (00:09)
[2017-08-20] MEDS: FERROUS GLUCONATE 325 MG TAB PO SCH (09:41)
[2017-08-20] MEDS: GABAPENTIN 300 MG CAP PO SCH (09:41)
[2017-08-20] MEDS: SODIUM CHLORIDE 0.9% (FLUSH) 10 ML SYG IV SCH (09:42)
[2017-08-20 11:21] VITALS: BP 116/73; TEMP 97.6; O2SAT 96
--- NOTE | 2017-08-20 18:06 | DS ---
SUPERVISING PHYSICIAN: Jose Roberto Bello M.D. DISCHARGE DIAGNOSIS: 1. Sepsis due to right lower lobe pneumonia with an admission temperature of 104.2 and bandemia of 16%. 2. Fever of unknown origin. The patient is on methotrexate with an immunocompromised state. 3. History of rheumatoid arthritis and polymyalgia rheumatica on chronic methotrexate and prednisone. HISTORY OF PRESENT ILLNESS: This is an 82 year-old male patient who was in his normal state of health until around 3:00 on the date of admission. He developed fever and chills. He was at Dr. Meyer's office. His Strep test was done and it was reported to be faintly positive, but due to his fever of 104 he was sent to the E. R. for further workup. He had no other symptoms. No coughing. No nausea. No vomiting. No diarrhea. No burning with urination. The only thing he had done that week was he had worked outside quite bit on the previous day. His chest x-ray in the Emergency Room was concerning for a possible right lower lobe infiltrate. The CT of the abdomen and pelvis was done and the lower slices of the CT did not show any infiltrates. It did in fact show a small hiatal hernia, enlarged prostate, diverticulosis without diverticulitis and atherosclerosis of the abdominal aorta and bilateral renal arteries. There was no concern for infection on the CT of the abdomen. His labs were done and chemistries were mostly within normal limits except his bilirubin was 1.4. Other liver function tests were normal. His fever in the Emergency Room was as high as 104.2. Initially his blood pressure was elevated but on admission to the floor it was 105/56. He does have a history of polymyalgia rheumatica and he is on methotrexate and prednisone which are concerning for an immunocompromised state. HOSPITAL COURSE: The patient was started on broad spectrum antibiotics including Cefepime, vancomycin and Flagyl. Subsequent x-ray on his second hospital day stay showed right basilar pneumonia with a possible tiny right sided effusion. After 24 hours in the hospital he was afebrile. His vital signs were stable. His CBC normalized other than the original 16% bands. His electrolytes were within normal limits and his UA was negative. It is to be noted that his rapid Strep at the hospital was negative. His preliminary blood cultures showed no growth after 48 hours. Yesterday, his vancomycin was discontinued as well as his Flagyl. The patient's vital signs remained stable. His chest x-ray yesterday showed no acute cardiopulmonary processes. Clinically he is stable. His chest x-ray is cleared and he will be discharged home with close followup with Dr. Meyer. DISCHARGE PLAN: The patient will be discharged home in stable condition. He is to resume his previous activity as tolerated as well as his previous diet. He has a followup with Dr. Meyer on 08/24/17 at 10:30 AM. He will need a chest x-ray on arrival. I have discharged him on Cefdinir for 10 days. He is to return to the hospital or call Dr. Meyer's office for any further problems or complications. DISCHARGE MEDICATIONS: 1. Gabapentin. 2. Prednisone. 3. Folic acid. 4. Methotrexate. 5. Ferrous gluconate. 6. Cefdinir. Dr. Bello is the collaborating physician available for consultation. #[id number] [facility]
[2017-08-24] MEDS ORDERED: METHOTREXATE SODIUM PO SCH (09:00)
== END 2017-08-20 11:45 | disposition home or self-care (01) | DRG 871 ==
LOC: ER 17:30 → MS 20:51 → OBSVTOIN 20:51
PROVIDERS: ADMIT Nurse Practitioner; ATTEND Nurse Practitioner Acute Care
DX: A41.9 Sepsis, unspecified organism (principal); J18.1 Lobar pneumonia, unspecified organism; M06.9 Rheumatoid arthritis, unspecified; M35.3 Polymyalgia rheumatica; R11.0 Nausea; R51 Headache; K44.9 Diaphragmatic hernia without obstruction or gangrene; N40.0 Benign prostatic hyperplasia without lower urinary tract symptoms; K21.9 Gastro-esophageal reflux disease without esophagitis; I70.0 Atherosclerosis of aorta; I70.1 Atherosclerosis of renal artery; Z88.5 Allergy status to narcotic agent; Z79.52 Long term (current) use of systemic steroids; Z79.899 Other long term (current) drug therapy; Z88.0 Allergy status to penicillin; Z88.1 Allergy status to other antibiotic agents; Z88.2 Allergy status to sulfonamides; Z88.8 Allergy status to other drugs, medicaments and biological substances

== ENCOUNTER → 2017-11-10 | Outpatient (CLI) | payer MEDICARE | LOC: GMAE 14:31 | PROVIDERS: ATTEND Family Medicine | DX: M79.671 Pain in right foot (principal) ==

== ENCOUNTER → 2017-12-19 | Outpatient (CLI) | payer MEDICARE | LOC: GMAE 10:43 | PROVIDERS: ATTEND Family Medicine | DX: M06.9 Rheumatoid arthritis, unspecified (principal) ==

== ENCOUNTER → 2018-02-20 | Outpatient (CLI) | payer MEDICARE ==
--- NOTE | 2018-02-21 08:41 | US ---
THYROID ULTRASOUND CLINICAL INFORMATION: Nontoxic goiter TECHNIQUE: Thyroid sonography was performed. COMPARISON: None FINDINGS: Thyroid size: Right thyroid lobe measures 4.1 x 1.4 x 1.1 cm. The left thyroid lobe measures 3.9 x 1.7 x 1.2 cm. The thyroid isthmus measures 3 mm in thickness. Texture: Thyroid glandular tissue appears slightly hypoechoic and coarse in texture. Estimated total number of nodules >/=1 cm: 2 Right No nodules are seen in the right thyroid lobe. No nodules in the thyroid isthmus. Left One lower pole lesion with cystic and solid components measures 1 x 0.4 x 0.9 cm. Another lesion in the lower pole appears predominantly cystic and measures 0.9 x 1.1 x 1.1 cm. At this size, these nodules could be followed up with sonography in one year. Biopsy is usually recommended for solid lesions above 1.5 cm or for solid 1 cm lesions with internal microcalcifications. No calcifications are seen in either of the left lobe thyroid nodules. IMPRESSION: Small nodules in left thyroid lobe. Consider one year imaging follow-up. Electronically signed by: Jigar Yoder MD 02/21/2018 8:40 AM [facility]
== END ==
LOC: US 14:34
PROVIDERS: ATTEND Family Medicine
DX: E04.1 Nontoxic single thyroid nodule (principal)

== ENCOUNTER → 2018-12-27 | Outpatient (CLI) | payer MEDICARE | LOC: GMAE 10:43 | PROVIDERS: ATTEND Family Medicine | DX: I10 Essential (primary) hypertension (principal); Z12.5 Encounter for screening for malignant neoplasm of prostate | CPT/HCPCS: 84443; G0103 ==

== ENCOUNTER 2018-12-29 10:00 | Emergency (ER) | payer MEDICARE ==
--- NOTE | 2018-12-29 10:06 | ED.PDOC ---
History of Present Illness - General Chief Complaint: General Stated Complaint: weakness,fever Time Seen by Provider: 12/29/18 10:01 Additional Information: this is a 83 year old male, with no known medical problem, patient presents with chills and body aches, this past tuesday patient received a flu shot and pneumovaccine, patient denies any chest pain, cough, shortness of breath patient denies cigarettes, alcohol or drugs, patient was rigo her privately by patient stated that symptoms began shortly the vaccines - History of Present Illness Associated Symptoms: denies symptoms Allergies/Adverse Reactions: Allergies Codeine Allergy (Verified 08/17/17 23:25) Erythromycin Allergy (Verified 08/17/17 23:25) Penicillins Allergy (Verified 08/17/17 23:25) Tetracaine Allergy (Verified 08/17/17 23:25) myacins Allergy (Uncoded 08/17/17 23:25) Verified by Chan 08/17/17 Home Medications: Ambulatory Orders Ferrous Gluconate 324 mg PO DAILY 07/30/17 Folic Acid 1 mg PO 1800 07/30/17 Gabapentin 600 mg PO TID 07/30/17 Methotrexate Sodium [Methotrexate] 8 each PO WKLY 07/30/17 Prednisone 4 mg PO 1300 07/30/17 Cefdinir 300 mg PO BID #20 capsule 08/20/17 Sulfamethoxazole-Trimethoprim [Bactrim Ds 800-160 mg] 1 tab PO BID #14 tab 12/29/18 Review of Systems - Review of Systems Constitutional: States: chills EENTM: States: no symptoms reported. Denies: nose congestion Respiratory: States: no symptoms reported. Denies: orthopnea, short of breath Cardiology: States: no symptoms reported. Denies: chest pain Gastrointestinal/Abdominal: Denies: abdominal pain, nausea, vomiting Genitourinary: States: no symptoms reported. Denies: dysuria, frequency, hematuria Musculoskeletal: States: muscle pain, other - body aches Skin: States: no symptoms reported Neurological: States: no symptoms reported, weakness Endocrine: States: no symptoms reported Hematologic/Lymphatic: States: no symptoms reported Past Medical History (General) - Patient Medical History Hx Seizures: No Hx Stroke: No Hx Dementia: No Hx Asthma: No Hx of COPD: No Hx Cardiac Disorders: No Hx Congestive Heart Failure: No Hx Pacemaker: No Hx Hypertension: No Hx Thyroid Disease: No Hx Diabetes: No Hx Gastroesophageal Reflux: Yes Hx Renal Disease: No Hx MRSA: No - Vaccination History Hx Influenza Vaccination: No Hx Pneumococcal Vaccination: No - Social History Hx Tobacco Use: No Hx Alcohol Use: No Hx Substance Use: No Hx Physical Abuse: No Hx Emotional Abuse: No Family Medical History - Family History Father Family History: Unknown Hx Family Stroke: Yes - dad,brother,sister Hx Family;Other: MOM-Alzheimers disease Physical Exam - Physical Exam General Appearance: Well Developed, Well Groomed, Well Hydrated, Well Nourished Eye Exam: bilateral normal Ears, Nose, Throat: hearing grossly normal, normal ENT inspection, normal pharynx Neck: non-tender, full range of motion, supple, normal inspection Respiratory: chest non-tender, lungs clear, normal breath sounds, no respiratory distress, no accessory muscle use Cardiovascular/Chest: normal peripheral pulses, regular rate, rhythm, no edema, no gallop, no JVD, no murmur Peripheral Pulses: radial,right: 2+, radial,left: 2+ Gastrointestinal/Abdominal: normal bowel sounds, non tender, soft, no organomegaly, no pulsatile mass Back Exam: normal inspection Extremity: normal range of motion, non-tender, normal inspection, no pedal edema, no calf tenderness, normal capillary refill Neurologic: pediatric orthodontist II-XII nml as tested, no motor/sensory deficits, alert, normal mood/affect, oriented x 3, other Skin Exam: normal color, rash - the righ deltoid showed an area with significant erythema, without fluctuance, crepitance Progress - Progress Progress: 12/29/18 10:11 this a 83 year with quantified fever, generalize weakness, and body aches. patient recently had his flu and pneumo vaccines, patient looks well and non toxic, will check urine for uti, chest x rays and cbc. on physical exam the the right deltoid appear red and warm to touch, this was the spot that he received the pneumovaccine 12/29/18 10:46 chest x ray did not show any abnormalities 12/29/18 10:47 patient does have leukocytosis but no hypotension and no tachycardia and no signs of sirs, patient does not appear toxic 12/29/18 10:55 patient is not able to give us any urine but patient has no urinary symptoms, patient is non toxic and feels al lot better, I suspect that fever is cause by a skin cellulitis at the area that he had the injection for his pneumo shot. I explained to patient that the cellulitis was caused by a skin breaks caused by the injection patient will be discharge home f/u with pcp i explained to the to delineate the area of redness vs normal skin 12/29/18 10:59 patient will received keflex in the er prior to be discharge told the nurse student that he fell and hit his head this morning so I will order a head ct prior to discharge him home 12/29/18 11:10 patient is allergic to penicillin and clindamycin so patient will be given doxycicline 12/29/18 11:[address] was negative for any epidural, subdural or intracanial hemorrhage - EKG/XRAY/CT XRAY: chest - no infiltrates and no pleural effusions Departure - Departure Clinical Impression: Cellulitis Qualifiers: Site of cellulitis: extremity Site of cellulitis of extremity: upper extremity Laterality: right Qualified Code(s): L03.113 - Cellulitis of right upper limb Concussion Qualifiers: Encounter type: initial encounter Loss of consciousness presence/duration: without LOC Qualified Code(s): S06.0X0A - Concussion without loss of consciousness, initial encounter Disposition: Discharge to Home or Self Care Health Concerns: stable Departure Forms: Patient Portal Self Enrollment, ED Discharge - Pt. Copy Instructions: Cellulitis (Skin Infection), Adult (DC), Concussion, Adult (DC) Referrals: AMANDEEP DRAKE MD [Primary Care Provider] - 1-2 Weeks Prescriptions: Sulfamethoxazole-Trimethoprim [Bactrim Ds 800-160 mg] 1 tab PO BID #14 tab Home Medications: Ambulatory Orders Ferrous Gluconate 324 mg PO DAILY 07/30/17 Folic Acid 1 mg PO 1800 07/30/17 Gabapentin 600 mg PO TID 07/30/17 Methotrexate Sodium [Methotrexate] 8 each PO WKLY 07/30/17 Prednisone 4 mg PO 1300 07/30/17 Cefdinir 300 mg PO BID #20 capsule 08/20/17 Sulfamethoxazole-Trimethoprim [Bactrim Ds 800-160 mg] 1 tab PO BID #14 tab 12/29/18 Additional Instructions: return to ther er if fever, chills, symptoms not improving or nause, vomiting or altered mental status
[2018-12-29] MEDS ORDERED: ACETAMINOPHEN 500 MG TAB PO ONE (10:15)
--- NOTE | 2018-12-29 10:30 | RAD ---
Procedure: XR CHEST 1 VIEW Exam Date: 12/29/2018 Ordering Provider: Jack Lopez Clinical Indication: fever Comparison: 12/13/2018 Findings: Borderline cardiomegaly. Aortic calcification. No focal lung consolidation. No pleural effusion. No pneumothorax. No acute osseous abnormality. Impression: 1. No acute abnormality in the chest. Electronically signed by: Jean Claude العراقي MD 12/29/2018 10:28 AM CDT
[2018-12-29] MEDS ORDERED: CLINDAMYCIN HCL CAP 150 MG CAP PO ONE (11:03)
[2018-12-29] MEDS ORDERED: DOXYCYCLINE HYCLATE CAP 100 MG CAP PO ONE (11:08)
[2018-12-29] MEDS ORDERED: SULFA/TRIMETH 800/160 (DS) TAB 1 EA TAB PO ONE (11:38)
--- NOTE | 2018-12-29 11:48 | CT ---
EXAM DESCRIPTION: Head CLINICAL HISTORY: fall COMPARISON: None TECHNIQUE: Noncontrast transaxial CT images of the head are obtained from base to vertex. This exam was performed according to our departmental dose-optimization program, which includes automated exposure control, adjustment of the mA and/or kV according to patient size and/or use of iterative reconstruction technique. FINDINGS: The midline structures are not displaced. Sulci are age-appropriate. There are areas of decreased attenuation in the periventricular white matter and the white matter of the centrum semiovale. There is no evidence of mass, mass-effect, hydrocephalus, or acute intracranial hemorrhage. No abnormal extra axial fluid collection is seen. Bone windows show no evidence of depressed skull fracture. Moderate calcifications of the intracranial carotid arteries. The visualized paranasal sinuses are unremarkable. IMPRESSION: 1. Age-appropriate atrophy with evidence of old small vessel ischemic type changes seen. 2. No acute abnormality is seen on noncontrast CT of the head. Electronically signed by: Leroy Pina MD 12/29/2018 11:46 AM CDT
[2018-12-29 12:04] VITALS: BP 115/56; TEMP 100.1; O2SAT 96
== END 2018-12-29 12:11 | disposition home or self-care (01) ==
LOC: ER 10:00
DX: L03.113 Cellulitis of right upper limb (principal); S06.0X0A Concussion without loss of consciousness, initial encounter; T88.0XXA Infection following immunization, initial encounter; K21.9 Gastro-esophageal reflux disease without esophagitis; W19.XXXA Unspecified fall, initial encounter; Y92.9 Unspecified place or not applicable; Z79.899 Other long term (current) drug therapy; Z88.1 Allergy status to other antibiotic agents; Z88.0 Allergy status to penicillin; Z88.5 Allergy status to narcotic agent; Z88.3 Allergy status to other anti-infective agents

== ENCOUNTER 2019-04-22 08:09 | Emergency (ER) | payer MEDICARE ==
[2019-04-22] MEDS ORDERED: MORPHINE SULFATE INJ 10 MG/ML VIAL ONE (08:15)
[2019-04-22] MEDS ORDERED: ASPIRIN TABLET 325 MG TAB PO ONE (08:16)
[2019-04-22] MEDS ORDERED: MORPHINE SULFATE INJ 10 MG/ML VIAL IV ONE (08:16)
--- NOTE | 2019-04-22 09:11 | RAD ---
PROCEDURE: XR Chest, 1 View CLINICAL INDICATION: The patient is 84 years old and is Male; acute left lateral chest pain MAIN TECHNIQUE: Frontal view of the chest. COMPARISON: 12/29/2018 FINDINGS: LUNGS: The lungs are clear and free of focal consolidation. PLEURAL SPACE: There is no pneumothorax. There are no pleural effusions noted. HEART: The heart size is normal. MEDIASTINUM: The mediastinal contour is normal. BONES/JOINTS: No acute abnormality noted. VASCULATURE: The aortic knob is calcified. TUBES, LINES AND DEVICES: There are electrocardiogram leads present. IMPRESSION: No active disease is seen in the chest. Electronically signed by: Mike Mcdonough MD 04/22/2019 9:08 AM SENIOR RISK ANALYST
--- NOTE | 2019-04-22 09:13 | ED.PDOC ---
History of Present Illness - General Chief Complaint: Chest Pain/AL Stated Complaint: left sided chest pain Time Seen by Provider: 04/22/19 08:10 Source: patient Exam Limitations: no limitations - History of Present Illness Initial Comments: the patient is a 84-year-old male presenting to emergency room secondary to waking up with left lateral point sharp chest pain. It has continued for the last couple of hours. It is worse with movement and with palpation. It is essentially reproducible with palpation. No shortness of breath. No central chest pain. No back pain. No known trauma. No history of coronary artery disease. No syncope or near syncope. No fever. No productive cough.blood pressure is up initially however the patient is hurting and anxious. Timing/Duration: 1-3 hours Severity: severe Improving Factors: nothing Worsening Factors: movement Associated Symptoms: chest pain Allergies/Adverse Reactions: Allergies Codeine Allergy (Verified 08/17/17 23:25) Erythromycin Allergy (Verified 08/17/17 23:25) Penicillins Allergy (Verified 08/17/17 23:25) Tetracaine Allergy (Verified 08/17/17 23:25) myacins Allergy (Uncoded 08/17/17 23:25) Verified by Chan 08/17/17 Home Medications: Ambulatory Orders Ferrous Gluconate 324 mg PO DAILY 07/30/17 Folic Acid 1 mg PO 1800 07/30/17 Methotrexate Sodium [Methotrexate] 8 each PO WKLY 07/30/17 Ahwszalvsrflz-Gkim-Ccdbwlkxol [Fioricet] 1 ea PO Q8H PRN #21 tab 04/22/19 Multiple Vitamins W/ Minerals [Multivitamin Adults] 1 tab PO DAILY 04/22/19 Review of Systems - Review of Systems Constitutional: States: no symptoms reported EENTM: States: no symptoms reported Respiratory: States: no symptoms reported Cardiology: States: chest pain Gastrointestinal/Abdominal: States: no symptoms reported Genitourinary: States: no symptoms reported Musculoskeletal: States: see HPI Skin: States: no symptoms reported Neurological: States: anxiety Endocrine: States: no symptoms reported All other Systems: No Change from Baseline Past Medical History (General) - Patient Medical History Hx Seizures: No Hx Stroke: No Hx Dementia: No Hx Asthma: No Hx of COPD: No Hx Cardiac Disorders: No Hx Congestive Heart Failure: No Hx Pacemaker: No Hx Hypertension: No Hx Thyroid Disease: No Hx Diabetes: No Hx Gastroesophageal Reflux: Yes Hx Renal Disease: No Hx MRSA: No Surgical History: appendectomy - Vaccination History Hx Influenza Vaccination: Yes Hx Pneumococcal Vaccination: Yes - Social History Hx Tobacco Use: Yes Hx Alcohol Use: No Hx Substance Use: No Hx Physical Abuse: No Hx Emotional Abuse: No Family Medical History - Family History Father Family History: Unknown Hx Family Stroke: Yes - dad,brother,sister Hx Family;Other: MOM-Alzheimers disease Physical Exam - Physical Exam General Appearance: Alert, Anxious Eye Exam: bilateral normal Ears, Nose, Throat: hearing grossly normal, normal ENT inspection Neck: full range of motion, supple Respiratory: lungs clear, normal breath sounds, no respiratory distress, no accessory muscle use, other - left lateral mid chest wall tenderness to palpation anteriorly. No palpable deformity. No crepitus. No bruising. Cardiovascular/Chest: normal peripheral pulses, regular rate, rhythm, no edema Peripheral Pulses: radial,right: 2+, radial,left: 2+, dorsalis pedis,right: 2+, dorsalis pedis,left: 2+ Gastrointestinal/Abdominal: non tender, soft Rectal Exam: deferred Back Exam: no CVA tenderness, no vertebral tenderness Extremity: normal range of motion, non-tender, normal inspection, no pedal edema, normal capillary refill Neurologic: steel heater II-XII nml as tested, alert, normal mood/affect, oriented x 3 Skin Exam: normal color Comments: Vital Signs - 24 hr 04/22/19 04/22/19 04/22/19 08:21 08:32 08:33 Temperature 96.3 F L Pulse Rate 53 L Pulse Rate [ 56 L 53 L Left Brachial] Respiratory 16 Rate Blood Pressure 193/80 [Left Arm] O2 Sat by Pulse 97 Oximetry 04/22/19 09:09 Temperature Pulse Rate Pulse Rate [ 51 L Left Brachial] Respiratory 20 Rate Blood Pressure 144/65 [Left Arm] O2 Sat by Pulse 94 L Oximetry Progress - Progress Progress: 04/22/19 11:59 the patient is an 84-year-old male presenting to emergency room secondary to left anterior lateral mid chest pain with tenderness to palpation. Laboratory work including a repeat set of cardiac enzymes, EKG and chest x-ray with rib series are all reassuring. This appears to be musculoskeletal pain most likely a pulled intercostal muscle. He'll be written for a short course of fioricet for as needed use and can take ehsm-jtd-dwjimvr Motrin or Aleve twice daily with food to help reduce discomfort. He does need to remember to take big deep breaths and make himself cough to prevent fluid accumulation that can be a set up for pneumonia. Obviously he is to return here for any worsening. ER warnings were given. 04/22/19 12:00 luiza ortiz [id number] 04/22/19 12:02 - Results/Orders Results/Orders: single view chest x-ray followed by left-sided rib series shows no acute pathology. See report for details. EKG shows mild sinus bradycardia at 53 bpm. Normal axis. No definitive ST segment or T-wave changes indicative of acute ischemia. Normal QT interval. Laboratory Tests 04/22/19 04/22/19 04/22/19 08:22 08:22 08:22 WBC 8.4 RBC 3.84 L Hgb 13.1 L Hct 38.6 L MCV 100.6 H MCH 34.2 H MCHC 34.0 RDW 14.9 H Plt Count 145 MPV 9.2 Absolute Neuts (auto) 5.50 Absolute Lymphs (auto) 1.80 Absolute Monos (auto) 0.80 Absolute Eos (auto) 0.20 Absolute Basos (auto) 0.10 Neutrophils % 65.9 Lymphocytes % 21.3 Monocytes % 9.5 H Eosinophils % 2.0 Basophils % 1.3 PT 9.7 INR 0.98 PTT (SP) 25.3 D-Dimer, Quantitative 0.58 H* Sodium 136 Potassium 4.2 Chloride 97 L Carbon Dioxide 26 Anion Gap 17.2 BUN 16 Creatinine 0.57 L BUN/Creatinine Ratio 28.1 H Random Glucose 93 Serum Osmolality 272.8 L Calcium 9.9 Magnesium 2.1 Total Bilirubin 0.8 AST 29 ALT 18 Alkaline Phosphatase 53 Creatine Kinase 97 CK-MB (CK-2) 2.6 CK-MB (CK-2) % Not Reportable Troponin I 0.02 B-Natriuretic Peptide 37.0 Serum Total Protein 7.7 Albumin 4.2 Globulin 3.5 Albumin/Globulin Ratio 1.2 TSH 5.45 04/22/19 11:25 WBC RBC Hgb Hct MCV MCH MCHC RDW Plt Count MPV Absolute Neuts (auto) Absolute Lymphs (auto) Absolute Monos (auto) Absolute Eos (auto) Absolute Basos (auto) Neutrophils % Lymphocytes % Monocytes % Eosinophils % Basophils % PT INR PTT (SP) D-Dimer, Quantitative Sodium Potassium Chloride Carbon Dioxide Anion Gap BUN Creatinine BUN/Creatinine Ratio Random Glucose Serum Osmolality Calcium Magnesium Total Bilirubin AST ALT Alkaline Phosphatase Creatine Kinase 74 CK-MB (CK-2) 2.4 CK-MB (CK-2) % Not Reportable Troponin I < 0.02 B-Natriuretic Peptide Serum Total Protein Albumin Globulin Albumin/Globulin Ratio TSH Departure - Departure Clinical Impression: Acute chest wall pain Disposition: Discharge to Home or Self Care Condition: Fair Departure Forms: ED Discharge - Pt. Copy, Patient Portal Self Enrollment Instructions: Chest Pain That Is Not Caused by the Heart (DC) Diet: regular diet Activity: increase activity as tolerated Referrals: AMANDEEP DRAKE MD [Primary Care Provider] - 1-2 Weeks Prescriptions: Eklacyshoahci-Gxdj-Nksybjrjoc [Fioricet] 1 ea PO Q8H PRN #21 tab PRN Reason: Pain Home Medications: Ambulatory Orders Ferrous Gluconate 324 mg PO DAILY 07/30/17 Folic Acid 1 mg PO 1800 07/30/17 Methotrexate Sodium [Methotrexate] 8 each PO WKLY 07/30/17 Vlgsqjjqvjjps-Tcbd-Ylihmkyeii [Fioricet] 1 ea PO Q8H PRN #21 tab 04/22/19 Multiple Vitamins W/ Minerals [Multivitamin Adults] 1 tab PO DAILY 04/22/19 Additional Instructions: the patient is an 84-year-old male presenting to emergency room secondary to left anterior lateral mid chest pain with tenderness to palpation. Laboratory work including a repeat set of cardiac enzymes, EKG and chest x-ray with rib series are all reassuring. This appears to be musculoskeletal pain most likely a pulled intercostal muscle. He'll be written for a short course of fioricet for as needed use and can take ghji-sty-tspwhup Motrin or Aleve twice daily with food to help reduce discomfort. He does need to remember to take big deep breaths and make himself cough to prevent fluid accumulation that can be a set up for pneumonia. Obviously he is to return here for any worsening. ER warnings were given.
--- NOTE | 2019-04-22 10:30 | RAD ---
EXAM DESCRIPTION: Ribs,Left 3 Views CLINICAL HISTORY: 84 years Male pain lateral to left nipple COMPARISON: Radiograph of the chest performed on the same day. TECHNIQUE: Three images of the left ribs were obtained. FINDINGS: No definite fracture seen. Normal bony mineralization. No erosive or lytic lesions seen. IMPRESSION: No acute fracture or dislocation seen. Electronically signed by: Shauna Nelson MD 04/22/2019 10:29 AM [facility]
[2019-04-22 11:34] VITALS: O2SAT 95
[2019-04-22 12:17] VITALS: BP 104/63; TEMP 96.4
== END 2019-04-22 12:09 | disposition home or self-care (01) ==
LOC: ER 08:09
DX: R07.89 Other chest pain (principal); R00.1 Bradycardia, unspecified; K21.9 Gastro-esophageal reflux disease without esophagitis; Z79.899 Other long term (current) drug therapy; Z88.5 Allergy status to narcotic agent; Z88.1 Allergy status to other antibiotic agents; Z88.0 Allergy status to penicillin; Z88.3 Allergy status to other anti-infective agents; Z90.49 Acquired absence of other specified parts of digestive tract; Z87.891 Personal history of nicotine dependence
CPT/HCPCS: 36415; 71045; 71101; 80053; 82550; 82553; 83735; 83880; 84443; 84484; 85025; 85379; 85610; 85730; 93005; J2270

== ENCOUNTER 2019-05-18 13:08 | Emergency (ER) | payer MEDICARE ==
--- NOTE | 2019-05-18 13:21 | ED.PDOC ---
History of Present Illness - General Stated Complaint: Right shoulder pain Time Seen by Provider: 05/18/19 13:12 Source: patient Exam Limitations: no limitations Additional Information: Patient was seen in outpatient clinic earlier today and diagnosed with strep pharyngitis. He denies sore throat. He was given a prescription for antibiotics. EKG was done and was reportedly "abnormal". EKG was not sent with the patient. When the nurse called the clinic, they said the EKG was uninterpretable due to patient motion. He has a history of RA, taking methotrexate daily. No recent injury/trauma/strain. He denies any recent illness cough/runny nose/sore throat/URI symptoms. - History of Present Illness Occurred: other - Pain was mild 2 days ago, got markedly worse last night. Pain - Upper Extremity: severe: Shoulder, right Method of Injury: unknown Improving Factors: nothing Worsening Factors: movement Allergies/Adverse Reactions: Allergies Codeine Allergy (Verified 05/18/19 14:41) Erythromycin Allergy (Verified 05/18/19 14:41) Penicillins Allergy (Verified 05/18/19 14:41) Tetracaine Allergy (Verified 05/18/19 14:41) myacins Allergy (Uncoded 08/17/17 23:25) Verified by Chan 08/17/17 Home Medications: Ambulatory Orders Ferrous Gluconate 324 mg PO DAILY 07/30/17 Folic Acid 1 mg PO 1800 07/30/17 Methotrexate Sodium [Methotrexate] 8 each PO WKLY 07/30/17 Txseppxwptapx-Dfhi-Aimrzypozz [Fioricet] 1 ea PO Q8H PRN #21 tab 04/22/19 Multiple Vitamins W/ Minerals [Multivitamin Adults] 1 tab PO DAILY 04/22/19 Review of Systems - Review of Systems Constitutional: States: chills, fever, malaise EENTM: Denies: ear pain, nose pain, nose congestion, throat pain, throat swellin g Respiratory: Denies: cough, short of breath, wheezing Cardiology: Denies: chest pain, edema, palpitations Gastrointestinal/Abdominal: Denies: abdominal pain, diarrhea, nausea, vomiting Genitourinary: Denies: dysuria, hematuria Musculoskeletal: States: joint pain, joint swelling, neck pain. Denies: back pain, muscle pain, muscle stiffness Skin: Denies: change in color, lesions, rash Neurological: Denies: headache, paresthesia, tingling, weakness Endocrine: States: no symptoms reported Hematologic/Lymphatic: Denies: blood clots, easy bleeding, easy bruising All other Systems: Reviewed and Negative Past Medical History (General) - Patient Medical History Hx Seizures: No Hx Stroke: No Hx Dementia: No Hx Asthma: No Hx of COPD: No Hx Cardiac Disorders: No Hx Congestive Heart Failure: No Hx Pacemaker: No Hx Hypertension: No Hx Thyroid Disease: No Hx Diabetes: No Hx Gastroesophageal Reflux: Yes Hx Renal Disease: No Hx MRSA: No - Vaccination History Hx Influenza Vaccination: Yes Hx Pneumococcal Vaccination: Yes - Social History Hx Tobacco Use: Yes Hx Alcohol Use: No Hx Substance Use: No Hx Physical Abuse: No Hx Emotional Abuse: No Family Medical History - Family History Father Family History: Unknown Hx Family Stroke: Yes - dad,brother,sister Hx Family;Other: MOM-Alzheimers disease Physical Exam - Physical Exam General Appearance: Well Developed, Well Groomed, Well Hydrated, Well Nourished, Other - Appears uncomfortable Neck: supple, normal inspection, limited range of motion - Due to pain, tender lateral - Right paracervical muscles and right trapezius Cardiovascular/Respiratory: regular rate, rhythm, no M/R/G, normal peripheral pulses, no JVD, normal breath sounds, no respiratory distress, tachycardia Abdominal Exam: non-tender, no hernia Back Exam: normal inspection, no CVA tenderness, no vertebral tenderness Shoulder Exam: bone tenderness, limited ROM - Markedly reduced internal and external rotation due to pain, swelling - Suspect effusion of the right shoulder Elbow/Forearm Exam: normal inspection, non-tender, no evidence of injury Wrist Exam: normal inspection, non-tender, no evidence of injury Hand Exam: normal inspection, non-tender, no evidence of injury Neuro/Tendon: normal sensation, normal motor functions, normal tendon functions Mental Status: alert, oriented x 3 Skin Exam: normal color, warm/dry Progress - Progress Progress: 05/18/19 14:17 Reviewed x-rays personally. Chest x-ray shows no acute process. Right shoulder shows no bony abnormalities, no significant effusion. Mild DJD. 05/18/19 15:22 Discussed with Zachary Contreras, hospitalist. He recommended transfer to outside facility due to need for cardiology evaluation, Ortho, possible ID due to concern for septic joint. 05/18/19 15:[address] Méndez, hospitalist at [facility] in [place]. Reviewed vital signs, labs, imaging, pending synovial fluid studies. Will accept his transfer to [facility]. 05/18/19 16:33 Patient family updated on plan for transfer. All questions answered. They are comfortable with plan for transfer by EMS. MDM: This patient has a longstanding history of rheumatoid arthritis and is currently on methotrexate. He presented with severe right shoulder pain and effusion of the right shoulder, progressively worsening for 2 days. He was febrile and borderline tachycardic on arrival. CRP markedly elevated at 12. Arthrocentesis of the right shoulder was performed, synovial fluid studies, including cell count, culture, Gram stain, crystals, LDH, protein, glucose all pending. Incidentally, his troponin is elevated, etiology unclear, but I suspect it may be related to sepsis. His EKG is normal, he has no chest pain or shortness of breath, no previous cardiac history. Hospitalist did not feel comfortable keeping him here at this facility, recommended transfer for Ortho, cardiology, possible need for ID. Blood cultures are pending at this time. He was given 2 g Rocephin in the emergency department. 325 aspirin given as well. - Results/Orders Results/Orders: 05/18/19 13:27 Sodium Chloride 0.9% (Flush) [Saline Flush Syringe] 10 ml IV PRN PRN EKG Stat Pulse Ox Stat Chest,1 View [RAD] Stat URINALYSIS Stat 05/18/19 13:28 Shoulder,Right 2 or More Views [RAD] Stat 05/18/19 13:30 ecg [EKG] STAT 05/18/19 13:54 BLOOD CULTURE Stat 05/18/19 14:31 INFLUENZA A & B BY PCR Stat 05/18/19 14:41 GLUCOSE,SYNOVIAL FLUID Stat LD-L/LDH Stat BODY FLUID CULTURE Stat CELL COUN/DIFF BF OTHER Stat TOTAL PROTEIN,SYNOVIAL FLD Stat 05/18/19 14:47 CRYSTALS,SYNOVIAL FLUID Stat 05/18/19 15:30 LACTIC ACID Q2H Laboratory Results - last 24 hr 05/18/19 05/18/19 05/18/19 13:37 13:37 13:37 WBC 7.2 RBC 3.63 L Hgb 12.6 L Hct 36.5 L MCV 100.3 H MCH 34.7 H MCHC 34.6 RDW 15.3 H Plt Count 153 MPV 9.5 Absolute Neuts (auto) 5.00 Absolute Lymphs (auto) 1.10 Absolute Monos (auto) 1.10 H Absolute Eos (auto) 0.00 Absolute Basos (auto) 0.10 Neutrophils % 68.7 Lymphocytes % 14.6 L Monocytes % 15.3 H Eosinophils % 0.6 L Basophils % 0.8 ESR PT 10.7 INR 1.08 PTT (SP) 27.9 Sodium 136 Potassium 3.7 Chloride 100 L Carbon Dioxide 29 Anion Gap 10.7 L BUN 17 Creatinine 0.66 BUN/Creatinine Ratio 25.8 H Random Glucose 102 Serum Osmolality 273.7 L Lactic Acid Calcium 9.6 Total Bilirubin 1.2 H AST 24 ALT 19 Alkaline Phosphatase 51 Troponin I C-Reactive Protein Serum Total Protein 7.7 Albumin 4.5 Globulin 3.2 Albumin/Globulin Ratio 1.4 05/18/19 05/18/19 05/18/19 13:37 13:37 13:37 WBC RBC Hgb Hct MCV MCH MCHC RDW Plt Count MPV Absolute Neuts (auto) Absolute Lymphs (auto) Absolute Monos (auto) Absolute Eos (auto) Absolute Basos (auto) Neutrophils % Lymphocytes % Monocytes % Eosinophils % Basophils % ESR 59 H PT INR PTT (SP) Sodium Potassium Chloride Carbon Dioxide Anion Gap BUN Creatinine BUN/Creatinine Ratio Random Glucose Serum Osmolality Lactic Acid 1.0 Calcium Total Bilirubin AST ALT Alkaline Phosphatase Troponin I 0.11 H* C-Reactive Protein Serum Total Protein Albumin Globulin Albumin/Globulin Ratio 05/18/19 13:37 WBC RBC Hgb Hct MCV MCH MCHC RDW Plt Count MPV Absolute Neuts (auto) Absolute Lymphs (auto) Absolute Monos (auto) Absolute Eos (auto) Absolute Basos (auto) Neutrophils % Lymphocytes % Monocytes % Eosinophils % Basophils % ESR PT INR PTT (SP) Sodium Potassium Chloride Carbon Dioxide Anion Gap BUN Creatinine BUN/Creatinine Ratio Random Glucose Serum Osmolality Lactic Acid Calcium Total Bilirubin AST ALT Alkaline Phosphatase Troponin I C-Reactive Protein 12.1 H* Serum Total Protein Albumin Globulin Albumin/Globulin Ratio - EKG/XRAY/CT EKG: Sinus - Sinus rhythm rate of 63 normal axis normal intervals no ST segment elevations or depressions, no ST T wave changes Procedures - Additional Procedures Progress: PROCEDURE NOTE: 3:10 PM Arthrocentesis of the right shoulder. Sterile drape and prep with chlorhexidine. Patient in sitting position. Skin was anesthetized with lidocaine 1%. Anterior approach lateral to coracoid process. 12 cc of serosanguineous fluid aspirated with an 18-gauge needle and sent to lab. Patient tolerated well. No complications. Departure - Departure Clinical Impression: Effusion of shoulder joint, right, Elevated troponin, Immunosuppressed status Sepsis Qualifiers: Sepsis type: sepsis due to unspecified organism Sepsis acute organ dysfunction status: without acute organ dysfunction Qualified Code(s): A41.9 - Sepsis, unspecified organism Rheumatoid arthritis Qualifiers: Rheumatoid arthritis location: multiple sites Rheumatoid factor presence: unspecified presence Qualified Code(s): M06.9 - Rheumatoid arthritis, unspecified Disposition: Transfer to Hospital Condition: Fair Referrals: AMANDEEP DRAKE MD [Primary Care Provider] - 1-2 Weeks Home Medications: Ambulatory Orders Ferrous Gluconate 324 mg PO DAILY 07/30/17 Folic Acid 1 mg PO 1800 07/30/17 Methotrexate Sodium [Methotrexate] 8 each PO WKLY 07/30/17 Qflyqnrobrjek-Pydj-Npxrojajtg [Fioricet] 1 ea PO Q8H PRN #21 tab 04/22/19 Multiple Vitamins W/ Minerals [Multivitamin Adults] 1 tab PO DAILY 04/22/19 Transfer to Outside Facility - Transfer Information Decision to Transfer Date: 05/18/19 Decision to Transfer Time: 15:28 Reason for Transfer: required specialist not available Accepting Facility: [facility]
[2019-05-18] MEDS ORDERED: ACETAMINOPHEN 500 MG TAB PO ONE (13:27)
[2019-05-18] MEDS ORDERED: cefTRIAXone SODIUM 2 GM in SODIUM CHL 0.9% 100ML MINI-BAG 100 ML IVPB ONE (13:27)
[2019-05-18] MEDS ORDERED: SODIUM CHLORIDE 0.9% 1000ML 1,000 ML IVS ONE (13:27)
[2019-05-18] MEDS ORDERED: SODIUM CHLORIDE 0.9% (FLUSH) 10 ML SYG IV PRN (13:27)
[2019-05-18] MEDS ORDERED: ONDANSETRON INJ 4 MG/2 ML VIAL IV ONE (13:29)
[2019-05-18] MEDS ORDERED: MORPHINE SULFATE INJ 10 MG/ML VIAL IV ONE (13:29)
[2019-05-18] MEDS ORDERED: SODIUM CHL 0.9% 100ML MINI-BAG 100 ML IVPB ONE (13:48)
[2019-05-18] MEDS ORDERED: LIDOCAINE 1% 50 ML VIAL INJ ONE (14:38)
--- NOTE | 2019-05-18 15:03 | RAD ---
EXAM DESCRIPTION: Chest,1 View CLINICAL HISTORY: 84 years Male, fever, unclear source COMPARISON: 05/18/2019 FINDINGS: One view/radiograph Heart size and pulmonary vessels are within normal limits. There is no pneumothorax or pleural effusion. The lungs are clear bilaterally. The soft tissues are unremarkable. No acute osseous findings. Atherosclerotic plaque in the thoracic aorta. IMPRESSION: No acute cardiopulmonary abnormality. Electronically signed by: Manjinder Land MD 05/18/2019 3:01 PM [facility]
--- NOTE | 2019-05-18 15:03 | RAD ---
EXAM DESCRIPTION: Shoulder,Right 2 or More Views CLINICAL HISTORY: 84 years Male, pain, fever COMPARISON: None. Findings: Two views/radiographs Location: Right shoulder No acute fracture or dislocation. Moderate acromioclavicular osteoarthritis. Soft tissues are unremarkable. Subacromial space is narrowed. Visualized chest is clear. Osteopenia. Mild glenohumeral osteoarthritis. IMPRESSION: No evidence of acute process in the right shoulder. Electronically signed by: Manjinder Ladn MD 05/18/2019 3:02 PM [facility]
[2019-05-18] MEDS ORDERED: ASPIRIN TABLET 325 MG TAB PO ONE (15:56)
[2019-05-18 16:49] VITALS: BP 105/56; TEMP 99.2; O2SAT 96
== END 2019-05-18 16:35 | disposition short-term general hospital (02) ==
LOC: ER 13:08
DX: A41.9 Sepsis, unspecified organism (principal); M25.411 Effusion, right shoulder; R79.89 Other specified abnormal findings of blood chemistry; D89.9 Disorder involving the immune mechanism, unspecified; M06.9 Rheumatoid arthritis, unspecified; K21.9 Gastro-esophageal reflux disease without esophagitis; Z87.891 Personal history of nicotine dependence; Z79.899 Other long term (current) drug therapy; Z88.5 Allergy status to narcotic agent; Z88.1 Allergy status to other antibiotic agents; Z88.0 Allergy status to penicillin; Z88.3 Allergy status to other anti-infective agents
CPT/HCPCS: 71045; 73030; 80053; 81001; 82945; 83605; 83615; 84484; 85025; 85610; 85651; 85730; 86140; 87040; 87070; 87502; 89051; 89060; 93005; J0696; J2270; J2405; J7030; J7050